=== PATIENT | female | born 1980 | race Caucasian/White ===

== ENCOUNTER → 2021-08-11 12:19 | Outpatient (CLI) | payer OTHER, SELFPAY ==
[2021-08-11 16:31] LABS: COVID19 -Nasal RAPID Negative (Negative)
== END ==
PROVIDERS: Visit Provider Obstetrics & Gynecology
DX: Z20.822 Contact with and (suspected) exposure to COVID-19 (principal); Z01.812 Encounter for preprocedural laboratory examination
CPT/HCPCS: 87635

== ENCOUNTER 2021-08-12 08:45 | Day surgery (SDC) | payer OTHER, SELFPAY ==
[2021-08-09 07:45] VITALS: BMI 29.4
[2021-08-12] VITALS (8 sets, daily range): BP systolic 106–122; BP diastolic 52–80; PULSE 62–97; RESP 14–16; TEMP 36.2–36.8; O2SAT 94–98; BMI 29.4
--- NOTE | 2021-08-12 | PATH_ITS ---
[facility] Accession Number: [id number] . 01 Material submitted: . uterus - UTERUS, BILATERAL FALLOPIAN TUBES WITH MULTIPLE FIBROIDS . 01 Diagnosis: Uterus and Bilateral Fallopian Tubes, Supracervical Hysterectomy: Secretory endometrium with no atypical hyperplasia or malignancy. Benign leiomyomas. Bilateral fimbriated fallopian tubes with no diagnostic alterations. [facility] 08/16/2021 1508 Local . 01 Electronically signed: . Tracey Osuna MD, Pathologist NPI- [id number] . 01 Gross description: . Received in a container of formalin, labeled uterus, bilateral fallopian tubes, with multiple fibroids, is a 54 g, 12.0 x 6.0 x 3.0 cm, fragmented, apparently supracervically amputated uterus admixed with two fallopian tubes and a few fibroids. The recognizable uterine serosa is smallwood, smooth, and glistening. The recognizable endometrium is dark red and velvety, measuring up to 0.3 cm in thickness. The uterine fragments are sectioned. The myometrium is smallwood-pink and rubbery. A few intramural and a few detached fibroids are identified, ranging in size from 0.5 cm to 2.0 cm. The fibroids have a unremarkable cut surfaces. The longer detached fallopian tube measures 7.5 x 0.5 cm. The serosa is congested, smooth, and glistening. There is a patient stellate lumen on cut surfaces. The shorter fallopian tube measures 6.0 x 0.7 cm. The serosa is congested, smooth, and glistening. There is a patient stellate lumen on cut surfaces. Mirror Framer sections are submitted as follows: . A1-A2: Endomyometrium. A3-A4: Intramural and detached fibroids. A5: Cross-section longer fallopian tube and its entire fimbriated end. A6: Cross-sections shorter fallopian tube and its entire fimbriated end. ([id number]) /FRR 08/13/2021 [facility]3 Local . 01 Pathologist provided ICD-10: D25.9 . 01 CPT . 206700 Specimen Comment: A courtesy copy of this report has been sent to [phone] Performed at: 01 [facility] [address] [place] [address], [place], [place] [id number] MD Wilber Hernandez MD Phone: [phone]
[2021-08-12] MEDS: LACTATED RINGERS 1,000 ML 100 ML IV (09:03)
[2021-08-12] MEDS: ACETAMINOPHEN 325 MG TABLET 975 MG PO (09:19)
[2021-08-12 09:28] LABS: Add Manual Diff / Slide Review NO; Basophils Absolute Auto 0 /uL (0-100); Basophils Percent Auto 0.7 % (0-2); Eosinophils Absolute Auto 100 /uL (0-450); Eosinophils Percent Auto 2.7 % (2-4); Hemoglobin 14.3 g/dL (12.0-16.0); Lymphocytes Absolute Auto 1600 /uL (1100-4500); Lymphocytes Percent Auto 33.9 % (25-40); Mean Corpuscular HGB Conc 35.8 % (30-36); Mean Corpuscular Hemoglobin 32.2 PG (26-34); Monocytes Absolute Auto 400 /uL (0-900); Monocytes Percent Auto 7.6 % (3-14); Neutrophils Absolute Auto 2600 /uL (1500-7000); Neutrophils Percent Auto 55.1 % (50-75); Platelet Count 227 X10^3/uL (150-400); Red Blood Cell Count 4.45 X10^6/uL (4.0-5.2); Red Cell Distribution Width 13.9 % (11.6-14.8); White Blood Cell Count 4.7 X10^3/uL (4.5-11.0)
--- NOTE | 2021-08-12 10:32 | PM.PREOP ---
Pre-operative Note COVID-19 COVID-19 status: Negative Result date/Date tested (Pos, Neg/Pending): 08/11/21 Criteria for continued procedure: Increased loss of function Interval Note History & Physical reviewed/Exam performed by Physician: Yes Changes to H&P: No
[2021-08-12] MEDS: CEFAZOLIN 2 GM/20 ML SYRINGE IV (11:25)
--- NOTE | 2021-08-12 11:57 | SUR.OPER ---
Lithotomy on padded OR bed. [employer] Pad Positioner under torso. Head on pillow, arms padded and tucked at sides. Legs secured in padded yellow fins stirrups. Positioning help performed and approved by Dr. Angeles.
[2021-08-12] MEDS: BUPIVACAINE 0.25% (PF) 30 ML, EPINEPHrine 0.15 MG INJ (12:11)
[2021-08-12] MEDS: SODIUM CHLORIDE 0.9% 1,000 ML 84 ML IV (12:28)
[2021-08-12] MEDS: ROPIVACAINE 0.2% PF 2 MG/ML 10ML AMP 20 ML INJ (12:38)
[2021-08-12] MEDS: OXYCODONE IR 5 MG TABLET PO (13:30)
--- NOTE | 2021-08-12 13:47 | PM.GYNOP.1 ---
Operative Date/Time/Diagnoses Date of procedure: 08/12/21 Time of procedure: 11:00 Pre-op diagnosis: menorrhrhagia Post-op diagnosis: same Procedure & Clinicians Procedure: Procedures Operation Date: 08/12/21 11:00 Actual Procedure Side Surgeon p Laparoscopic Supracervical Hysterectomy w/ Bilateral Salpingectomy Chiquita Angeles MD Indications: menorrhagia Surgeon: Chiquita Angeles Stitch Bonding Machine Drawer In: Carly Thakur Anesthesia Type: General Operative Notes Findings: Multifibroid uterus. Normal tubes and ovaries . Endometriosis implants scattered throughout pelvis. Normal vulva, vagina, cervix. Closure Type: primary Specimen(s): left tube, right tube and uterus Estimated blood loss (mL): 100 Procedure in detail: After proper consents were obtained and a test was negative, the patient was taken to the operating room. General anesthesia was induced, and she was placed in the dorsal lithotomy position and prepped and draped in the normal sterile fashion. A weldon catheter was placed, and a speculum placed in the patient's vagina. A single tooth tenaculum was applied to the anterior lip of the cervix, and hegar dilators used to dilate the cervix to 6mm with gentle pressure. A uterine manipulator was gently inserted and the balloon inflated to 5ccs. The tenaculum and speculum were removed from the vagina. Attention was then turned to the abdomen, where 1cc of .25% marcaine with epinephrine was used to infiltrate the skin just below the umbilicus. A scalpel was used to make a 5mm incision, the anterior abdominal wall was elevated, and a Veress needle gently inserted into the abdomen. Intraperitoneal placement was confirmed with a drop of normal saline passed through the veress needle with gravity, and CO2 used to insufflate the abdomen to 15mmHg. A 5mm trocar and sleeve were placed into the abdomen through this incision and intraperitoneal placement was confirmed visually with insertion of the laparoscope. Abdominal survey at this time was normal, and lateral ports were placed under direct visualization. These were placed on the left and right, 8cm from the umbilicus and after infiltration of 1mm of local anesthetic as above. The patient was placed in trendelenburg position, and a blunt probe used to gently push the bowel out of the pelvis. The ovaries and fallopian tubes appeared normal bilaterally. Endometriosis implants and multiple uterine fibroids were observed. A atraumatic grasper was used to elevate the left fallopian tube and the Powerseal device was used to amputate the tube, which was removed from the abdomen. The uteroovarian ligament and round ligaments were then cauterized and transected with this device, the anterior and posterior leaflets of the broad ligament and skeletonized and the vesicouterine peritoneum identified. This was transected and a bladder flap created with the Powerseal and gentle traction. The uterine arteries were identified, and cauterized and cut at the level of the internal os. The same procedure was performed on the patient's right, without complication. The Manoj loop was inserted into the abdomen, and placed around the uterus at the level of the internal os. After careful inspection for proper placement anteriorly and posteriorly, this device was used to amputate the uterine fundus without complication. A monopolar spatula was used to ablate the cervical os, and hemostasis achieved where necessary with this and the powerseal. A laparoscopic tenaculum was placed on a cervical fibroid that was now readily apparent, and the fibroid elevated and amputated with the power seal. Attention was then turned to the abdominal wall, where .25% marcaine with epinephrine was used to infiltrate a midline area 2cm above the pubic symphesis. A scalpel was used to make a 3cm minilaparotomy, and a 15mm trocar and sleeve inserted under direct visualization into the abdominal cavity. A 12mm endocatch bag was placed through this port under direct visualization, and carefully deployed into the abdomen. The uterus was placed in the bag, and the bag was closed and removed under direct visualization of all parts of the bag. The open end of the bag was removed through the port, the port was removed, and the open end of the endocatch bag brought through the incision. A small Elise device was inserted to protect the incision and skin, and the uterus was brought to the opening of the incision and carefully hand morcellated out through the incision using a scalpel. After removal of the uterus, the elise device and endocatch bag were removed. The fascia at the minilaparotomy incision was closed using 0 vicryl in a running fashion. The abdomen was re-insufflated, the monopolar spatula used to ablate the endometriosis where feasible, hemostasis at the operative sites assured, and a repeat abdominal survey was normal. The laparoscope was removed from the abdomen, the insufflating gas allowed to escape, and the ports removed. An interrupted suture was used at the mini-laparotomy to close the subcutaneous space in an interrupted fashion, and the skin at all 4 incisions closed with 4-0 biosyn, then covered with steri strips and bandages. The weldon catheter was removed from the bladder. The patient tolerated the procedure well, all counts were correct, 2g of Ancef were given at the beginning of the case and a test was negative on admission. The patient was transported to PACU in stable condition. IVF: 1300ccs LR UOP: 400cs clear urine EBL: 100ccs Complications: none Post-operative Condition: stable Disposition: PACU Plan for aftercare: Home as previously discussed with patient
--- NOTE | 2021-08-12 14:51 | SUR.PHASEII ---
Patient discharged to home with friend Deanna. DC instructions reviewed with Deanna at [facility]. Pt steady on feet, denies nausea and pain minimal.
== END 2021-08-12 14:44 | disposition home or self-care (01) ==
PROVIDERS: Referring Provider Obstetrics & Gynecology; Visit Provider Obstetrics & Gynecology
PROC: 0UT94ZL Resection of Uterus, Supracervical, Percutaneous Endoscopic Approach (ICD-10-PCS; CPT 58542; principal; 2021-08-12 11:00)
DX: D25.1 Intramural leiomyoma of uterus (principal); F32.A Depression, unspecified
CPT/HCPCS: 58542; 36415; 81025; 85025; 86850; 86900; 86901; J0171; J0690; J1100; J1170; J1885; J2250; J2405; J2704; J2795; J3010